=== PATIENT | male | born 1950 | race Caucasian/White ===

== ENCOUNTER 2024-01-04 16:25 | Inpatient (IN) ==
[2024-01-04 19:21] LABS: Hematocrit 37.8 % (38-53); Hemoglobin 12.7 g/dL (13.2-16.3); Mean Corpuscular Hemoglobin 27.6 pg (27-33); Mean Corpuscular Hgb Conc 33.6 g/dL (31-36); Mean Corpuscular Volume 82.3 fL (80-97); Mean Platelet Volume 6.8 fL (7.5-11.2); Platelet Count 341 10^3/uL (150-450); Red Cell Distribution Width 17.5 % (12-17); White Blood Count 17.4 10^3/uL (3.6-10.2)
[2024-01-04] MEDS: Heparin DRIP 25,000 UNITS BAG 25,000 UNITS/250 ML BAG IV SCH (19:24)
[2024-01-04 19:39] LABS: Albumin 3.2 g/dL (3.2-5.2); Albumin/Globulin Ratio 0.8 (1-3); Calcium 9.7 mg/dL (8.6-10.3); Creatinine, Serum 0.82 mg/dL (0.67-1.17); Globulin 3.9 g/dL (2-4); Total Bilirubin 0.5 mg/dL (0.2-1.0); Total Protein 7.1 g/dL (6.4-8.9); eGFR CKD-EPI 93.9 (>60)
[2024-01-04] MEDS: Heparin 5000 UNITS/ML 1 mL VIAL IV SCH (19:43)
[2024-01-04 19:49] LABS: ABS Basophils 0.2 10^3/uL (0.0-0.1); ABS Eosinophils 0.1 10^3/uL (0.0-0.5); ABS Lymphocytes 1.7 10^3/uL (1.0-4.8); ABS Monocytes 1.8 10^3/uL (0.0-1.1); ABS Neutrophils 13.8 10^3/uL (1.5-7.6); ABS Nucleated RBC 0.01 10^3/ul; Eosinophil % 0.5 %; Lymphocyte % 9.5 %; RBC Morphology Normal (Normal)
[2024-01-04] MEDS ORDERED: Vancomycin 1,000 MG in NS 0.9% 250 ml 250 ML IVPB ONE (21:13)
[2024-01-04] MEDS ORDERED: Vancomycin per Pharmacy 1 EA NOTE FOLLOW UP SCH (22:00)
[2024-01-04] MEDS: cefTRIAXone 1 gm/50 mL D5W 1 GM/50 ML BAG IV ONE (22:49)
[2024-01-04] MEDS ORDERED: Dextrose 50% Syringe 50 ml 25 GM/50 ML SYRINGE IV PUSH PRN (23:58)
[2024-01-05] MEDS: Lactated Ringers 1000 ml BAG 1,000 ML IV ONE (00:08)
[2024-01-05] MEDS ORDERED: Zosyn per Pharmacy NOTE FOLLOW UP SCH (01:00)
[2024-01-05] MEDS: Vancomycin 1,750 MG in NS 0.9% 500 ml BAG 500 ML IVPB ONE (01:10)
[2024-01-05] MEDS ORDERED: Acetaminophen IV 1 GM/100ML 1,000 MG/100 ML BAG IV PRN (01:30)
[2024-01-05] MEDS: fentaNYL 100 mcg/2 ml 50 MCG/ML VIAL IV SLOW PU PRN (01:57)
[2024-01-05] MEDS: Piperacillin/Tazobac 3.375 BAG 3.375 GM/100 ML BAG IV ONE (02:03)
[2024-01-05 04:42] LABS: Albumin/Globulin Ratio 0.9 (1-3); Calcium 9.4 mg/dL (8.6-10.3); Creatinine, Serum 0.77 mg/dL (0.67-1.17); Globulin 3.5 g/dL (2-4); Potassium 4.7 mmol/L (3.5-5.0); Total Bilirubin 0.4 mg/dL (0.2-1.0); Total Protein 6.5 g/dL (6.4-8.9); eGFR CKD-EPI 95.7 (>60)
[2024-01-05] MEDS ORDERED: fentaNYL 100 mcg/2 ml 50 MCG/ML VIAL ONE ×2 (12:11→12:55)
[2024-01-05] MEDS ORDERED: Midazolam 5 mg/5 ml VIAL 1 mg/ml 5 ml VIAL (5 mg) ONE (12:11)
[2024-01-05] MEDS ORDERED: Heparin 2 UNITS/ML IVPREMIX 3,000 UNIT/1,500 ML BAG IV ONE (12:19)
[2024-01-05] MEDS ORDERED: Lidocaine 1% VIAL 10 MG/ML 30 ML VIAL ONE (12:19)
[2024-01-05] MEDS ORDERED: Ondansetron 4 mg VIAL 2 MG/ML 2 ml VIAL ONE (12:35)
[2024-01-05] MEDS ORDERED: Iohexol 350 (CONTRAST) 100 ML PAK IV ONE ×2 (12:38→13:24)
[2024-01-05] MEDS: Vancomycin 1,500 MG in NS 0.9% 250 ml 250 ML IVPB SCH (12:49)
[2024-01-05] MEDS ORDERED: Heparin 1,000 UNIT/ML 10 ml (10,000 UNITS) CATHLAB/DIALYSIS ONE (12:52)
[2024-01-05] MEDS ORDERED: HYDROmorphone 0.5 MG/0.5 ML SYRINGE ONE ×3 (13:19→13:57)
[2024-01-05] MEDS: cefTRIAXone 1 gm/50 mL D5W 1 GM/50 ML BAG IV SCH (22:00)
[2024-01-06 04:20] LABS: Hematocrit 32.8 % (38-53); Hemoglobin 10.9 g/dL (13.2-16.3); Mean Corpuscular Hemoglobin 27.7 pg (27-33); Mean Corpuscular Hgb Conc 33.3 g/dL (31-36); Mean Corpuscular Volume 83.1 fL (80-97); Mean Platelet Volume 6.8 fL (7.5-11.2); Platelet Count 300 10^3/uL (150-450); Red Blood Count 3.94 10^6/uL (4.06-5.63); Red Cell Distribution Width 17.1 % (12-17); White Blood Count 12.6 10^3/uL (3.6-10.2)
[2024-01-06 04:49] LABS: ABS Basophils 0.1 10^3/uL (0.0-0.1); ABS Eosinophils 0.1 10^3/uL (0.0-0.5); ABS Lymphocytes 1.3 10^3/uL (1.0-4.8); ABS Monocytes 1.2 10^3/uL (0.0-1.1); ABS Neutrophils 9.9 10^3/uL (1.5-7.6); Eosinophil % 0.7 %
[2024-01-06 05:05] LABS: Calcium 9.1 mg/dL (8.6-10.3); Creatinine, Serum 0.69 mg/dL (0.67-1.17); Potassium 4.7 mmol/L (3.5-5.0); eGFR CKD-EPI 98.9 (>60)
[2024-01-06 05:08] LABS: Magnesium 1.7 mg/dL (1.9-2.7)
[2024-01-06] MEDS ORDERED: Lorazepam PYXIS KEY PRN (10:29)
[2024-01-06 10:40] LABS: Hematocrit 32.8 % (38-53); Hemoglobin 10.8 g/dL (13.2-16.3)
[2024-01-06] MEDS: LORazepam 2 mg VIAL 1 ml IV PUSH ONE (13:05)
[2024-01-06] MEDS: Vancomycin Trough Check NOTE FOLLOW UP ONE (14:30)
[2024-01-07 06:02] LABS: Hemoglobin 10.2 g/dL (13.2-16.3); Mean Corpuscular Hemoglobin 27.6 pg (27-33); Mean Corpuscular Hgb Conc 32.9 g/dL (31-36); Mean Corpuscular Volume 83.9 fL (80-97); Mean Platelet Volume 6.9 fL (7.5-11.2); Platelet Count 278 10^3/uL (150-450); Red Blood Count 3.69 10^6/uL (4.06-5.63); Red Cell Distribution Width 16.7 % (12-17); White Blood Count 11.1 10^3/uL (3.6-10.2)
[2024-01-07 06:23] LABS: Calcium 8.9 mg/dL (8.6-10.3); Creatinine, Serum 0.74 mg/dL (0.67-1.17); Magnesium 1.5 mg/dL (1.9-2.7); Potassium 4.6 mmol/L (3.5-5.0); eGFR CKD-EPI 96.9 (>60)
[2024-01-07 07:40] LABS: ABS Basophils 0.1 10^3/uL (0.0-0.1); ABS Eosinophils 0.1 10^3/uL (0.0-0.5); ABS Lymphocytes 1.2 10^3/uL (1.0-4.8); ABS Neutrophils 8.6 10^3/uL (1.5-7.6); ABS Nucleated RBC 0.01 10^3/ul; Eosinophil % 1.2 %; Lymphocyte % 10.7 %; Nucleated Red Blood Cells % 0.1 %/100WBC (0.0-0.8)
[2024-01-08 06:42] LABS: Hematocrit 32.5 % (38-53); Mean Corpuscular Hgb Conc 33.7 g/dL (31-36); Mean Corpuscular Volume 83.1 fL (80-97); Mean Platelet Volume 6.8 fL (7.5-11.2); Platelet Count 280 10^3/uL (150-450); Red Blood Count 3.91 10^6/uL (4.06-5.63); Red Cell Distribution Width 17.2 % (12-17); White Blood Count 9.2 10^3/uL (3.6-10.2)
[2024-01-08 07:01] LABS: Creatinine, Serum 0.75 mg/dL (0.67-1.17); Magnesium 1.5 mg/dL (1.9-2.7); Potassium 4.4 mmol/L (3.5-5.0); eGFR CKD-EPI 95.9 (>60)
[2024-01-08 07:23] LABS: ABS Basophils 0.2 10^3/uL (0.0-0.1); ABS Eosinophils 0.1 10^3/uL (0.0-0.5); ABS Lymphocytes 0.9 10^3/uL (1.0-4.8); ABS Neutrophils 6.9 10^3/uL (1.5-7.6); ABS Nucleated RBC 0.01 10^3/ul; Eosinophil % 1.5 %; Lymphocyte % 10.3 %; Nucleated Red Blood Cells % 0.1 %/100WBC (0.0-0.8)
[2024-01-08] MEDS: Magnesium Sulf 4 GM/100 ML IV 4,000 MG/100 ML BAG IVPB ONE (08:23)
[2024-01-09 06:55] LABS: ABS Basophils 0.1 10^3/uL (0.0-0.1); ABS Eosinophils 0.2 10^3/uL (0.0-0.5); ABS Lymphocytes 1.1 10^3/uL (1.0-4.8); ABS Neutrophils 7.1 10^3/uL (1.5-7.6); ABS Nucleated RBC 0.01 10^3/ul; Eosinophil % 1.9 %; Hematocrit 30.9 % (38-53); Hemoglobin 10.3 g/dL (13.2-16.3); Lymphocyte % 11.6 %; Mean Corpuscular Hemoglobin 27.7 pg (27-33); Mean Corpuscular Hgb Conc 33.5 g/dL (31-36); Mean Corpuscular Volume 82.8 fL (80-97); Mean Platelet Volume 6.8 fL (7.5-11.2); Nucleated Red Blood Cells % 0.1 %/100WBC (0.0-0.8); Platelet Count 282 10^3/uL (150-450); Red Blood Count 3.73 10^6/uL (4.06-5.63); Red Cell Distribution Width 17.4 % (12-17); White Blood Count 9.6 10^3/uL (3.6-10.2)
[2024-01-09 07:13] LABS: Calcium 9.1 mg/dL (8.6-10.3); Creatinine, Serum 0.89 mg/dL (0.67-1.17); Magnesium 1.9 mg/dL (1.9-2.7); Potassium 4.1 mmol/L (3.5-5.0); eGFR CKD-EPI 91.1 (>60)
[2024-01-09] MEDS ORDERED: Vancomycin Trough Check NOTE FOLLOW UP ONE (11:30)
[2024-01-09 14:41] VITALS: BP 111/80
[2024-01-09] MEDS: Morphine 2 MG/ML SYRINGE IV ONE (16:08)
== END 2024-01-09 17:30 | disposition home or self-care (01) | DRG 169 ==
LOC: SUATTDRO 17:59 → ICU 17:59 → SSU 01-06 09:11
PROVIDERS: ADMIT Internal Medicine Pulmonary Disease; ATTEND Student in an Organized Health Care Education/Training Program